=== PATIENT | male | born 1955 | race Caucasian/White ===

== ENCOUNTER 2017-01-08 11:15 | Emergency (ER) | payer OTHER ==
[~2017-01-08] VITALS: Ht 167.6 cm; Wt 76.3 kg
[~2017-01-08 11:15] MED LIST: ALLEGRA-D 121 TABLET; NO HOME MEDS
[2017-01-08] MEDS ORDERED: PERCOCET 5/31 TABLET PO (13:31)
[2017-01-08 14:02] VITALS: BP 133/98
== END 2017-01-08 14:02 | disposition home or self-care (01) ==
LOC: TRA 11:15 → EME 11:15 → TRA 14:02
PROC: 2W3RX1Z Immobilization of Left Lower Leg using Splint (ICD-10-PCS; principal; 2017-01-08)
DX: S82.832A Other fracture of upper and lower end of left fibula, initial encounter for closed fracture (principal); W23.0XXA Caught, crushed, jammed, or pinched between moving objects, initial encounter; Z87.891 Personal history of nicotine dependence
CPT/HCPCS: 73590; 73610; 99281; 99284